=== PATIENT | male | born 2000 | race Caucasian/White ===

== ENCOUNTER 2023-10-16 12:05 | Emergency (ER) | payer OTHER, MEDICAID, SELFPAY ==
[2023-10-16 12:08] VITALS: BP 160/92; PULSE 94; RESP 18; TEMP 36.8; O2SAT 99
--- NOTE | 2023-10-16 12:55 | W.ED.GENAD ---
Discharge Plan Discharge Details Chief Complaint: PsychEval Primary Care Provider: Unknown,Unknown ED Provider: Devonte Maza [facility] General Mode of arrival: ambulatory. Date/Time Provider Initiated Documentation: 10/16/23 12:36. Limitations to Documentation: no limitations. Information obtained by: patient, family (Presents with brother) and RN notes reviewed. Related Data Allergies Allergy/AdvReac Type Severity Reaction Status Date / Time No Known Allergies Allergy Unverified 10/16/23 12:13 General Stated Complaint: PsychEval RADHA: 2 Review of Systems All systems reviewed & are unremarkable except as noted in HPI and below Cardiovascular Cardiovascular: Denies chest pain and Denies dyspnea Respiratory Respiratory: Denies cough and Denies dyspnea Gastrointestinal Gastrointestinal: Denies abdominal pain, Denies diarrhea, Denies nausea and Denies vomiting Musculoskeletal Musculoskeletal: Reports other (Leg pain ) Psychiatric Psychiatric: Reports as per HPI, Reports anxiety, Reports depression, Reports hopelessness and Reports suicidal ideation Exam Narrative Exam Narrative: Constitutional: Alert and oriented x3. Appears stated age. Normal body habitus. Head: Normocephalic, no trauma. Eyes: Pupils PERRL, Red reflex noted, EOM's intact. Eyelids symmetrical without lesions, discharge, or swelling. ENT: Bilateral TM's WNL, External ear normal to inspection, no mastoid TTP, swelling, or erythema, Nasal turbinates WNL, no nasal discharge. Normal dentition, Posterior pharynx WNL, no exudate. Chest: RRR, Normal S1, S2, distal pulses intact. Resp: Lungs clear to auscultation bilaterally, no wheezes, rales, or rhonchi. Abdomen: Soft, non-distended, Normoactive bowel sounds all 4 quads. Musculoskeletal: Normal gait, Moves all 4 extremities without difficulty. Skin: No suspicious rashes or lesions. Capillary refill less than 2 sec. Neurologic: Cranial nerves II-XII intact. Alert and oriented x 3. Motor: No deficits noted. Sensory: Intact bilaterally all 4 extremities. Hematologic/Lymphatic: No ecchymosis, no lymphadenopathy. Psychiatric: See below Psych Appearance: grossly normal Speech and Movement: speech clear and delayed speech Mood: labile mood Affect: indifferent and blunted Attitude: cooperative, guarded and avoids eye contact Thought Process: normal Thought Content: suicidality Insight: insight good Judgment: fair Course Vital Signs Vital signs: Vital Signs Temperature 36.8 C 10/16/23 12:08 Pulse 94 H 10/16/23 12:08 Respiratory Rate 18 10/16/23 12:08 Blood Pressure 160/92 H 10/16/23 12:08 Pulse Oximetry 99 10/16/23 12:08 Temperature 36.8 C 10/16/23 12:08 Pulse 94 H 10/16/23 12:08 Respiratory Rate 18 10/16/23 12:08 Respiratory Effort Normal, Non-Labored 10/16/23 12:12 Blood Pressure 160/92 H 10/16/23 12:08 Blood Pressure Position Sitting 10/16/23 12:08 Pulse Oximetry 99 10/16/23 12:08 Oxygen Delivery Method Room Air 10/16/23 12:08 Oxygen Flow Rate 0 10/16/23 12:08 Pain Level 0 10/16/23 12:08 Medical Decision Making 23-year-old male presents to the ER with a chief complaint of suicidal ideation with multiple plans. He states that he has been on his medications and has been taking them as prescribed and he is continue to become increasingly depressed with suicidal thoughts. He reports that last night he went down to the [employer] tracks with the intent to be run over. He does endorse occasional alcohol, last alcohol intake was Sunday. He does appear guarded, avoids eye contact, denies any abdominal pain chest pain or shortness of breath. He does endorse some leg pain intermittently. He has no signs of trauma noted on his exam. Medical clearance labs ordered including CBC CMP, UDS ethyl alcohol level. Patient is placed in paper scrubs by staff midwife/apprenticeship director is in line of sight of nurses station. Will plan to move patient awaiting mental health evaluation to the mental health unit when appropriate. Patient did eat this morning. He has had interrupted sleep. Please see staff midwife/apprenticeship director notes. Care is to be handed off to oncoming provider BROKC Bryant pending mental health eval and disposition. Discussed patient case in details with him he verbalized understanding. This text was generated using [employer]ation system, please disregard any oddities of phrase or misspellings. Medical Records Medical records reviewed: Yes I reviewed the patient's medical records. Lab Data Lab results reviewed: Yes I reviewed the patient's lab results. Labs: Laboratory Tests Range/Units 10/16/23 10/16/23 12:21 13:05 WBC (4.4-10.8) 10^3/uL 4.47 RBC (4.36-5.78) 10^6/uL 5.33 Hgb (13.5-17.5) g/dL 15.3 Hct (40.0-50.0) % 43.4 MCV (80-95) fL 81 MCH (27.0-33.0) pg 28.7 MCHC (32.0-36.0) % 35.3 RDW (11.8-14.1) % 12.1 Plt Count (130-400) 10^3/uL 267 MPV (8.0-11.0) fL 9.2 Sodium (136-145) mmol/L 142 Potassium (3.5-5.1) mmol/L 3.4 L Chloride (98-107) mmol/L 104 Carbon Dioxide (21.0-32.0) mmol/L 28.8 Anion Gap (3-11) mmol/L 9.2 BUN (7-18) mg/dL 12 Creatinine (0.70-1.30) mg/dL 1.1 Est GFR (CKD-EPI 2020) (mL/min/1.73m2) 97.34 Glucose (74-106) mg/dL 95 Calcium (8.5-10.1) mg/dL 9.4 Total Bilirubin (0.2-1.0) mg/dL 0.5 AST (15-37) U/L 14 L ALT (16-63) U/L 20 Alkaline Phosphatase (46-116) U/L 107 Total Protein (6.4-8.2) g/dL 7.3 Albumin (3.4-5.0) g/dL 4.1 Urine Opiates Screen (Negative) Negative Urine Methadone Screen (Negative) Negative Ur Barbiturates Screen (Negative) Negative Ur Tricyclics Screen (Negative) Negative Ur Amphetamines Screen (Negative) Negative U Benzodiazepines Scrn (Negative) Negative Urine Cocaine Screen (Negative) Negative Ur THC Screen (Negative) Negative Ethyl Alcohol (<10) mg/dL < 3.0 Quality:[facility] Health Related Social Needs: No Data to Display [facility] Social History (Updated 10/16/23 @ 12:45 by Samina Ledesma NP) Smoking/Tobacco Use Status: Never Smoking risk assessment performed?: Yes Alcohol Intake: current Alcohol Intake frequency: a few times a week Alcohol type: beer Drug use: Never Substance use type: does not use Sign Out Sign Out Data: Sign Out Comment: Suicidal ideation with a plan, pending mental health evaluation which is happening currently and disposition. Patient is cooperative, calm. History of anxiety depression, ADHD. Potassium 3.4, 20 mill equivalents potassium p.o. given. Endorses occasional alcohol, no signs of trauma denies any illicit substance use. Negative UDS. Last updated by Samina Ledesma NP at 10/16/23 15:13
[2023-10-16 13:14] LABS: HCT 43.4 % (40.0-50.0); HGB 15.3 g/dL (13.5-17.5); MCH 28.7 pg (27.0-33.0); MCHC 35.3 % (32.0-36.0); MCV 81 fL (80-95); MPV 9.2 fL (8.0-11.0); Platelet Count 267 10^3/uL (130-400); RBC 5.33 10^6/uL (4.36-5.78); RDW 12.1 % (11.8-14.1); RDW-SD 35.5 fL; WBC 4.47 10^3/uL (4.4-10.8)
--- NOTE | 2023-10-16 13:16 | NUR.NOTE ---
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 He states has no joe in life, feels as if he has no goals and does not want anything out of life other than it to end. He has been having these feelings since middle school but they have been worse lately. Says he feels like a burden to the people around him and he does not sleep enough. Reports not having concrete thoughts had lots of thoughts on how he could kill self except 2 days ago he had strong thoughts of taking too many of his prescribed meds. Last night he walked to train tracks laid on tracks and hoped for a train to come. Provider aware, report given to GLORIA TRIPATHI.
[2023-10-16 13:19] LABS: *AMPHETAMINES SCREEN URINE Negative (Negative); *BARBITURATES SCREEN URINE Negative (Negative); *BENZODIAZEPINES SCREEN URINE Negative (Negative); Cannabinoids THC Negative (Negative); Cocaine Screen,Urine Negative (Negative); METHADONE URINE SCREEN Negative (Negative); OPIATES URINE SCREEN Negative (Negative)
[2023-10-16 13:21] LABS: Tricyclic Antidepressants Negative (Negative)
[2023-10-16 13:30] LABS: ALT 20 U/L (16-63); AST 14 U/L (15-37); Albumin 4.1 g/dL (3.4-5.0); Alkaline Phosphatase 107 U/L (46-116); Anion Gap 9.2 mmol/L (3-11); BUN 12 mg/dL (7-18); Bilirubin, Total 0.5 mg/dL (0.2-1.0); CO2 28.8 mmol/L (21.0-32.0); CREATININE 1.1 mg/dL (0.70-1.30); Calcium 9.4 mg/dL (8.5-10.1); Chloride 104 mmol/L (98-107); Estimated GFR 97.34 (mL/min/1.73m2); Glucose 95 mg/dL (74-106); Potassium 3.4 mmol/L (3.5-5.1); Sodium 142 mmol/L (136-145); Total Protein 7.3 g/dL (6.4-8.2)
[2023-10-16 13:33] LABS: ETHANOL BLOOD < 3.0 mg/dL (<10)
[2023-10-16] MEDS: Potassium Chloride Liquid 20 MEQ PKT PO (14:25)
--- NOTE | 2023-10-16 16:02 | W.EDPROG ---
Date of service: 10/16/23 Time of Service: 16:02 Medical Decision Making This dictation utilizes [id number] dictation software and may contain unedited grammatical errors. Patient seen in sign-out from Samina Ledesma NP- please see her complete note. Essentially, this 23 y/o M presents to ED today with a chief complaint of suicidal ideation, wanting to lay on the train tracks and commit suicide- dissatisfied with intermediate psychiatric meds, counseling. Has his brother here with him. Patient is voluntary at this time, with MH eval pending by [facility] at sign-out. Patients' medical history: negative, otherwise healthy. Family and social history: [ ]. Pertinent exam findings / vital signs include benign cardiopulmonary status, benign abdomen, neuro intact. Differential / pathologies of concern include suicidal ideation, mood disorder, depression. Diagnostic studies of: -basic labs reviewed, no actionable abnormalities. Interventions of: -MH eval. ED Course/Assessment/Plan: 23-year-old male was sent here by his primary care office in [place], told to bypass multiple other facilities to present to our specialized psychiatric ER-he has acute SI with plan, was making arrangements to carry out this plan, is currently voluntary and has had no acute outbursts or events or complications throughout his stay here today since signout. Mental health from [facility] did state they will be searching for an inpatient placement for him, he is on [place] Medicaid so this may be somewhat more complicated than atypical cases they may have to present to [place] facilities. His home meds are ordered, he is resting comfortably, patient signed out to Dr. Leydi Gautam at shift change. - spoke to Bladimir Youssef, rn long term care @ [facility] in-patient psych, the [facility]- they accept for admission- his [place] insurance prior auth is pending. Transport can be arranged once this is resolved Disposition of suicidal ideation. Patient verbalized understanding of the plan and return to ED criteria and engaged in shared decision making. Medical Records Medical records reviewed: Yes I reviewed the patient's medical records. Lab Data Lab results reviewed: Yes I reviewed the patient's lab results. Labs: Laboratory Tests Range/Units 10/16/23 10/16/23 12:21 13:05 WBC (4.4-10.8) 10^3/uL 4.47 RBC (4.36-5.78) 10^6/uL 5.33 Hgb (13.5-17.5) g/dL 15.3 Hct (40.0-50.0) % 43.4 MCV (80-95) fL 81 MCH (27.0-33.0) pg 28.7 MCHC (32.0-36.0) % 35.3 RDW (11.8-14.1) % 12.1 Plt Count (130-400) 10^3/uL 267 MPV (8.0-11.0) fL 9.2 Sodium (136-145) mmol/L 142 Potassium (3.5-5.1) mmol/L 3.4 L Chloride (98-107) mmol/L 104 Carbon Dioxide (21.0-32.0) mmol/L 28.8 Anion Gap (3-11) mmol/L 9.2 BUN (7-18) mg/dL 12 Creatinine (0.70-1.30) mg/dL 1.1 Est GFR (CKD-EPI 2020) (mL/min/1.73m2) 97.34 Glucose (74-106) mg/dL 95 Calcium (8.5-10.1) mg/dL 9.4 Total Bilirubin (0.2-1.0) mg/dL 0.5 AST (15-37) U/L 14 L ALT (16-63) U/L 20 Alkaline Phosphatase (46-116) U/L 107 Total Protein (6.4-8.2) g/dL 7.3 Albumin (3.4-5.0) g/dL 4.1 Urine Opiates Screen (Negative) Negative Urine Methadone Screen (Negative) Negative Ur Barbiturates Screen (Negative) Negative Ur Tricyclics Screen (Negative) Negative Ur Amphetamines Screen (Negative) Negative U Benzodiazepines Scrn (Negative) Negative Urine Cocaine Screen (Negative) Negative Ur THC Screen (Negative) Negative Ethyl Alcohol (<10) mg/dL < 3.0 Quality:SDOH Health Related Social Needs: No Data to Display Sign Out Sign Out Data: Sign Out Comment: Suicidal ideation with a plan, pending mental health evaluation which is happening currently and disposition. Patient is cooperative, calm. History of anxiety depression, ADHD. Potassium 3.4, 20 mill equivalents potassium p.o. given. Endorses occasional alcohol, no signs of trauma denies any illicit substance use. Negative UDS. Last updated by Samina Ledesma NP at 10/16/23 15:13 Discharge Plan Disposition Patient Disposition: Psychiatric Hospital/Unit Specific Psychiatric Facility: [facility] Condition: Stable Discharge Details Clinical Impression: Suicidal ideation Primary Care Provider: Unknown,Unknown ED Provider: Devonte Maza Home Meds and New Rx's Prescriptions: Continued dextroamphetamine-amphetamine [Adderall] 20 mg tablet 20 mg PO DAILY Caplyta 42 mg capsule 42 mg PO DAILY All Day Allergy (cetirizine) 10 mg capsule 10 mg PO DAILY PRN Discharge Instructions Instructions: Suicide Prevention, Depression, Adult ED
--- NOTE | 2023-10-16 16:27 | CMSP_ITS ---
Date of service: 10/16/23 Time of Service: 16:27 Care Management Safety Plan Status Status: Voluntary Reason for Wait Reason for Wait: Inpatient Admission (At this time, patient is awaiting inpatient psych placement at an accepting facility) Safety Plan Safety Plan: VOLUNTARY FOR INPATIENT PSYCHIATRIC STABILIZATION.? Patient is appropriate in all interactions since arriving at [facility]; Pt has demonstrated appropriate coping and communication skills, has articulated his needs and concerns and is fully engaged during staff interactions. Safety plan has been established with patient, and care team, to adhere to patient goals, identify restrictions based on behavioral status, address nutrition, and determine allowed personal belongings, tools for hygiene and p ersonal care. Determine level of activity including ambulation, level of supervision, visitors, and determine privileges based on behaviors and level of engagement by pt. Juan Jose present to [facility] ER with reports of SI. See ER Note. He lives in [place] [facility] [place] and reportedly came to [facility] ER in particular under the direction of his PCP at [facility]. Pt was evaluated by MH clinician and inpatient psych treatment is recommended. [facility] is aware patient has [place] [employer] insurance (and [employer]), which may affect placement options. SAFETY PLAN: 1. Will remain on suicide precautions, in paper clothes 2. Will remain in Zone B under direct supervision of one-on-one staff at all times provided by [employer]; JITENDRA, SAMPLE CLERK ground crew supervisor. 3. May have paper cups, plates, finger foods as well as a cardboard spoon with which to eat meals. 4. Follow [facility] Management of the Admitted Behavioral Health Patient policy. 5. Shower available in Zone B without restriction. 6. Personal belongings-soft items and personal cell phone ARE permitted at RN discretion. 7. Visitors Permitted at RN discretion: Brother Toby Clifford, Sister Apollo Clifford 8. Activities: soft cart items approved per RN discretion. 9.? Bathroom available in Zone B without restriction. 10. Phone: incoming/outgoing calls limited to [facility] cordless phone at RN discretion. Due to VOLUNTARY status, if patient wishes to leave [facility], staff will contact [facility] Crisis Screener ([phone]) and Mill House Supervisor ([phone]) as soon as possible. In the event of elopement, notify [facility] Police ([phone]). Patient is currently voluntarily at [facility] and seeking inpatient admission when a bed becomes available. [facility] Frontline Sex Therapist will continue seeking placement. Please contact the [place] Supervisor ([phone]) and [facility] Sex Therapist ([phone]) for any needed changes in the Safety Plan. Safety plan has been provided to interdepartmental care team.
--- NOTE | 2023-10-16 16:27 | PDOC.CMSAFE ---
Date of service: 10/16/23 Time of Service: 16:27 Care Management Safety Plan Status Status: Voluntary Reason for Wait Reason for Wait: Inpatient Admission (At this time, patient is awaiting inpatient psych placement at an accepting facility) Safety Plan Safety Plan: VOLUNTARY FOR INPATIENT PSYCHIATRIC STABILIZATION.? Patient is appropriate in all interactions since arriving at [facility]; Pt has demonstrated appropriate coping and communication skills, has articulated his needs and concerns and is fully engaged during staff interactions. Safety plan has been established with patient, and care team, to adhere to patient goals, identify restrictions based on behavioral status, address nutrition, and determine allowed personal belongings, tools for hygiene and personal care. Determine level of activity including ambulation, level of supervision, visitors, and determine privileges based on behaviors and level of engagement by pt. Juan Jose present to [facility] ER with reports of SI. See ER Note. He lives in [place] and reportedly came to [facility] ER in particular under the direction of his PCP at [facility]. Pt was evaluated by clinician and inpatient psych treatment is recommended. [facility] is aware patient has [place] [employer] insurance (and [employer]), which may affect placement options. SAFETY PLAN: 1. Will remain on suicide precautions, in paper clothes 2. Will remain in Zone B under direct supervision of one-on-one staff at all times provided by [employer]; JITENDRA, PATIENT FINANCIAL COORDINATOR multiplex operator. 3. May have paper cups, plates, finger foods as well as a cardboard spoon with which to eat meals. 4. Follow [facility] Management of the Admitted Behavioral Health Patient policy. 5. Shower available in Zone B without restriction. 6. Personal belongings-soft items and personal cell phone ARE permitted at RN discretion. 7. Visitors Permitted at RN discretion: Brother Toby Clifford, Sister Apollo Clifford 8. Activities: soft cart items approved per RN discretion. 9.? Bathroom available in Zone B without restriction. 10. Phone: incoming/outgoing calls limited to [facility] cordless phone at RN discretion. Due to VOLUNTARY status, if patient wishes to leave [facility], staff will contact [facility] Crisis Screener ([phone]) and Client Sales And Service Officer ([phone]) as soon as possible. In the event of elopement, notify [facility] Police ([phone]). Patient is currently voluntarily at [facility] and seeking inpatient admission when a bed becomes available. [facility] Frontline Storage Solutions Architect will continue seeking placement. Please contact the Client Sales And Service Officer ([phone]) and [facility] Storage Solutions Architect ([phone]) for any needed changes in the Safety Plan. Safety plan has been provided to interdepartmental care team.
--- NOTE | 2023-10-16 22:47 | W.EDPROG ---
Date of service: 10/16/23 Time of Service: 22:48 Medical Decision Making This patient was signed out to me. Please see previous notes for H&P and initial eval. In brief, 23yo M with SI, voluntary, medically cleared, accepted to [facility] with plan for tomorrow. No acute events overnight. Did not wake for assessment. Signed out to oncoming physician, plan remains as above. Quality:SDOH Health Related Social Needs: No Data to Display Sign Out Sign Out Data: Sign Out Comment: Suicidal ideation with a plan, pending mental health evaluation which is happening currently and disposition. Patient is cooperative, calm. History of anxiety depression, ADHD. Potassium 3.4, 20 mill equivalents potassium p.o. given. Endorses occasional alcohol, no signs of trauma denies any illicit substance use. Negative UDS. Last updated by Samina Ledesma, JAGDEEP at 10/16/23 15:13 Sign Out Comment: Patient SI with plan. [place] [facility] [place] awaiting prior auth as he [place] insurance. Arrange transport once this is cleared. No acute events in ED, has mild low K+ that will replete with normal PO intake, home meds reconciled. Last updated by Devonte Maza PA at 10/16/23 21:50 Discharge Plan Disposition Patient Disposition: Psychiatric Hospital/Unit Specific Psychiatric Facility: [facility] [place] [place] Condition: Stable Discharge Details Clinical Impression: Suicidal ideation Primary Care Provider: Unknown,Unknown ED Provider: Alee Gautam Home Meds and New Rx's Prescriptions: Continued dextroamphetamine-amphetamine [Adderall] 20 mg tablet 20 mg PO DAILY Caplyta 42 mg capsule 42 mg PO DAILY All Day Allergy (cetirizine) 10 mg capsule 10 mg PO DAILY PRN Discharge Instructions Instructions: Suicide Prevention, Depression, Adult ED
[2023-10-17 07:13] VITALS: BP 128/72; PULSE 81; RESP 16; TEMP 36.7; O2SAT 99
--- NOTE | 2023-10-17 11:29 | CMSP_ITS ---
Date of service: 10/17/23 Time of Service: 11:29 Care Management Safety Plan Status Status: Voluntary Reason for Wait Reason for Wait: Inpatient Admission Safety Plan Safety Plan: VOLUNTARY FOR INPATIENT PSYCHIATRIC STABILIZATION.? Patient is appropriate in all interactions since arriving at [facility]; Pt has demonstrated appropriate coping and communication skills, has articulated his needs and concerns and is fully engaged during staff interactions. Safety plan has been established with patient, and care team, to adhere to patient goals, identify restrictions based on behavioral status, address nutrition, and determine allowed personal belongings, tools for hygiene and personal care. Determine level of activity including ambulation, level of supervision, visitors, and determine privileges based on behaviors and level of engagement by pt. Juan Jose present to [facility] ER with reports of SI. See ER Note. He lives in [facility] [place] and reportedly came to [facility] ER in particular under the direction of his PCP at [facility]. Pt was evaluated by clinician and inpatient psych treatment is recommended. [facility] is aware patient has [place] [employer] insurance (and [employer]), which may affect placement options. Juan Jose has been accepted to [facility] on 10/18/23, CM will follow. SAFETY PLAN: 1. Will remain on suicide precautions, in paper clothes 2. Will remain in Zone B under direct supervision of one-on-one staff at all times provided by [employer]; JITENDRA, SURGICAL DEVICE SALES REPRESENTATIVE resort keeper. 3. May have paper cups, plates, finger foods as well as a cardboard spoon with which to eat meals. 4. Follow [facility] Management of the Admitted Behavioral Health Patient policy. 5. Shower available in Zone B without restriction. 6. Personal belongings-soft items and personal cell phone ARE permitted at RN discretion. 7. Visitors Permitted at RN discretion: Brother Toby Clifford, Sister Apollo Clifford 8. Activities: soft cart items approved per RN discretion. 9.? Bathroom available in Zone B without restriction. 10. Phone: incoming/outgoing calls limited to [facility] cordless phone at RN discretion. Due to VOLUNTARY status, if patient wishes to leave [facility], staff will contact [facility] Crisis Screener ([phone]) and Concrete Crusher Loader Operator ([phone]) as soon as possible. In the event of elopement, notify [facility] Police ([phone]). Patient is currently voluntarily at [facility] and seeking inpatient admission when a bed becomes available. [facility] Frontline Manager Summer will continue seeking placement. Please contact the Concrete Crusher Loader Operator ([phone]) and [facility] Manager Summer ([phone]) for any needed changes in the Safety Plan. Safety plan has been provided to interdepartmental care team.
--- NOTE | 2023-10-17 11:29 | PDOC.CMSAFE ---
Date of service: 10/17/23 Time of Service: 11:29 Care Management Safety Plan Status Status: Voluntary Reason for Wait Reason for Wait: Inpatient Admission Safety Plan Safety Plan: VOLUNTARY FOR INPATIENT PSYCHIATRIC STABILIZATION.? Patient is appropriate in all interactions since arriving at [facility]; Pt has demonstrated appropriate coping and communication skills, has articulated his needs and concerns and is fully engaged during staff interactions. Safety plan has been established with patient, and care team, to adhere to patient goals, identify restrictions based on behavioral status, address nutrition, and determine allowed personal belongings, tools for hygiene and personal care. Determine level of activity including ambulation, level of supervision, visitors, and determine privileges based on behaviors and level of engagement by pt. Juan Jose present to [facility] ER with reports of SI. See ER Note. He lives in [facility] and reportedly came to [facility] ER in particular under the direction of his PCP at [facility]. Pt was evaluated by clinician and inpatient psych treatment is recommended. [facility] is aware patient has [employer] insurance (and [place]), which may affect placement options. Juan Jose has been accepted to [facility] on 10/18/23, CM will follow. SAFETY PLAN: 1. Will remain on suicide precautions, in paper clothes 2. Will remain in Zone B under direct supervision of one-on-one staff at all times provided by [employer]; JITENDRA, VIRTUALIZATION ENGINEER liquid sugar fortifier. 3. May have paper cups, plates, finger foods as well as a cardboard spoon with which to eat meals. 4. Follow [facility] Management of the Admitted Behavioral Health Patient policy. 5. Shower available in Zone B without restriction. 6. Personal belongings-soft items and personal cell phone ARE permitted at RN discretion. 7. Visitors Permitted at RN discretion: Brother Toby Clifford, Sister Apollo Clifford 8. Activities: soft cart items approved per RN discretion. 9.? Bathroom available in Zone B without restriction. 10. Phone: incoming/outgoing calls limited to [facility] cordless phone at RN discretion. Due to VOLUNTARY status, if patient wishes to leave [facility], staff will contact [facility] Crisis Screener ([phone]) and Senior Project Coordinator ([phone]) as soon as possible. In the event of elopement, notify [facility] Police ([phone]). Patient is currently voluntarily at [facility] and seeking inpatient admission when a bed becomes available. [facility] Frontline Manager Finance will continue seeking placement. Please contact the Senior Project Coordinator ([phone]) and [facility] Manager Finance ([phone]) for any needed changes in the Safety Plan. Safety plan has been provided to interdepartmental care team.
== END 2023-10-17 15:16 ==
PROVIDERS: Registered Nurse Emergency; Emergency Provider Student in an Organized Health Care Education/Training Program
DX: R45.851 Suicidal ideations (principal); F41.9 Anxiety disorder, unspecified; F32.A Depression, unspecified
CPT/HCPCS: 00123; 80053; 80307; 85027; 99285; 80320